=== PATIENT | female | born 1940 | race Caucasian/White ===

== ENCOUNTER 2017-05-10 17:04 | Inpatient (IN) | payer MEDICARE, OTHER ==
[~2017-05-10] VITALS: Ht 157.5 cm; Wt 60.0 kg
[~2017-05-10 17:04] MED LIST: ALBU18HF2 INH; BUDE10.2 INH; CLON0.5T23 PO; DOCU-28 PO; DOXY-200 PO; FLUT16SP26 BOTHNARES; GUAI600T45 PO; HYDR-565 PO; IPRA3AMP9 IH; KETO10DR13 OP; MAGN800O PO; MORP10SO22 PO; ONDA8TAB6 PO; SIME125C43 PO; TRAZ-143 PO
[2017-05-10] MEDS ORDERED: magnesium 2GM in 50ml NS 50 ML IV ONE (17:20)
[2017-05-10] MEDS ORDERED: normal saline 1000ML IV soln IV ONE (17:20)
[2017-05-10] MEDS ORDERED: methylPREDNISolone sod succ 125mg/2ml vial IV ONE (17:20)
[2017-05-10] MEDS ORDERED: ipratropium/albuterol 3ml nebule NEB ONE (17:20)
[2017-05-10] MEDS ORDERED: levoFLOXACIN-Levaquin 750MG/D5 150 ML IV ONE (17:20)
[2017-05-10] MEDS ORDERED: levoFLOXACIN 250mg tablet PO ONE (17:40)
[2017-05-10 17:50] LABS: BASOPHILS % (AUTO) 0.2 % (0-1); EOSINOPHILS # (AUTO) 0.3 X10'3 (0-0.9); EOSINOPHILS % (AUTO) 2.7 % (0-6); HEMATOCRIT 40.2 % (35.0-45.0); HEMOGLOBIN 13.3 g/dl (12.0-16.0); LYMPHOCYTES # (AUTO) 1.2 X10'3 (1.1-4.8); LYMPHOCYTES % (AUTO) 10.8 % (21-51); MEAN CORPUSCULAR HEMOGLOBIN 28.6 PG (27.0-31.0); MEAN CORPUSCULAR HGB CONC 33.1 % (33.0-36.5); MEAN CORPUSCULAR VOLUME 86.5 FL (78-98); MEAN PLATELET VOLUME 6.5 FL (7.4-10.4); MONOCYTES # (AUTO) 0.8 X10'3 (0-0.9); MONOCYTES % (AUTO) 6.8 % (2-12); NEUTROPHILS # (AUTO) 8.9 X10'3 (1.8-7.7); NEUTROPHILS % (AUTO) 79.5 % (42-75); PLATELET COUNT 247 X10'3 (140-440); RED BLOOD COUNT 4.65 X10'6 (4.20-5.60); RED CELL DISTRIBUTION WIDTH 14.1 % (11.5-14.5); WHITE BLOOD COUNT 11.1 X10'3 (4.5-11.0)
[2017-05-10 18:04] LABS: PARTIAL THROMBOPLASTIN TIME 24 SECONDS (22-32); PROTHROMBIN TIME 10.2 SECONDS (9.0-12.0)
[2017-05-10 18:06] LABS: ABG OXYGEN SATURATION 94.6 % (95-98); ABG PH (T) 7.337 (7.350-7.450); ABG PO2 (T) 73.8 mmHg (83-108); ALLEN'S TEST Negative; FCOHb 3.8 % (0.5-1.5); FLOW 2 L/min; FMetHb 0.1 % (0.3-1.12); FO2Hb 90.9 % (94-100); RESPIRATORY RATE (OBSERVED) 16 b/min; TOTAL HEMOGLOBIN 13.9 G/dl (12.0-16.0)
[2017-05-10 18:13] LABS: ALANINE AMINOTRANSFERASE 29 U/L (12-78); ALBUMIN 3.3 G/DL (3.4-5.0); ALBUMIN/GLOBULIN RATIO 1.2 (1.1-1.5); ALKALINE PHOSPHATASE 65 IU/L (46-116); ANION GAP 1 (8-16); ASPARTATE AMINO TRANSFERASE 16 U/L (10-37); BILIRUBIN,TOTAL 0.7 MG/DL (0.1-1.0); BLOOD UREA NITROGEN 28 MG/DL (7-18); BUN/CREATININE RATIO 46.7 (6.6-38.0); CALCIUM 8.8 MG/DL (8.5-10.1); CHLORIDE 104 MMOL/L (99-107); GLUCOSE 175 MG/DL (70-104); MAGNESIUM 2.1 MG/DL (1.5-2.4); POTASSIUM 3.5 MMOL/L (3.5-5.1); SODIUM 146 MMOL/L (135-145); eGFR > 90 ML/MIN
[2017-05-10 18:15] LABS: TOTAL CARBON DIOXIDE 41.3 MMOL/L (24-32)
[2017-05-10] MEDS ORDERED: PRED5TAB PO (19:21)
[2017-05-10] MEDS ORDERED: MORP-64 PO (19:21)
[2017-05-10] MEDS ORDERED: LORA0.5T PO (19:21)
[2017-05-10] MEDS ORDERED: MORPHINE PO PRN (19:40)
[2017-05-10] MEDS ORDERED: acetaminophen 325mg tablet PO PRN ×2 (19:40)
[2017-05-10] MEDS ORDERED: HYDROcodone/acetaminophen 10/325mg tab PO PRN ×2 (19:40)
[2017-05-10] MEDS ORDERED: ondansetron/PF 4mg/2ml inj IV PRN (19:40)
[2017-05-10] MEDS ORDERED: mag hydrox/Alum hydrox/simeth 30ml oral suspension PO PRN (19:40)
[2017-05-10] MEDS ORDERED: metoclopramide 5 mg/ml inj IV PRN (19:40)
[2017-05-10] MEDS ORDERED: diphenhydrAMINE 25mg capsule PO PRN (19:40)
[2017-05-10] MEDS ORDERED: HYDROmorphone 2mg/ml vial IV PRN ×2 (19:40)
[2017-05-10] MEDS ORDERED: non-formulary drug (Albuterol Sulfate (Ventolin Hfa) 2 PUFFS) INH SCH (19:40)
[2017-05-10] MEDS ORDERED: HYDROcodone/acetaminophen 5mg/325mg tablet PO PRN (19:40)
[2017-05-10] MEDS ORDERED: magnesium hydroxide 30ml (MOM) UD suspension PO PRN (19:40)
[2017-05-10] MEDS ORDERED: morphine 2 MG/ML inj. syringe IV PRN ×2 (19:40)
[2017-05-10] MEDS ORDERED: bisacodyl 10mg suppository rectal RC PRN (19:40)
[2017-05-10] MEDS ORDERED: acetaminophen 650mg rectal suppository RC PRN (19:40)
[2017-05-10] MEDS ORDERED: diphenhydrAMINE 50 mg/ml inj IV PRN (19:40)
[2017-05-10 20:06] LABS: CLARITY,URINE CLEAR (Clear); COLOR,URINE YELLOW (Yellow); GLUCOSE, URINE NEGATIVE (Neg); KETONES,URINE 15 mg/dl (Neg); LEUKOCYTE ESTERASE ,URINE NEGATIVE (Neg); NITRITES, URINE NEGATIVE (Neg); OCCULT BLOOD,URINE NEGATIVE (Neg); PH,URINE 5.5 (4.8-8.0); PROTEIN,URINE NEGATIVE (Neg); UROBILINOGEN,URINE 0.2 E.U/dL (0.2-1.0)
[2017-05-10 20:09] LABS: UA COLLECTION TYPE FOLEY CATH
[2017-05-10 20:30] VITALS: BP 111/50
[2017-05-10] MEDS ORDERED: temazepam 15mg capsule PO PRN (21:00)
[2017-05-10 21:12] LABS: LIPASE 62 U/L (73-393); PHOSPHORUS 3.3 MG/DL (2.3-4.5)
[2017-05-10] MEDS: normal saline 1000ml 1,000 ML IV SCH (21:15)
[2017-05-10] MEDS: guaiFENesin ER 600mg tablet PO SCH (21:15)
[2017-05-10] MEDS: morphine ER 15mg tablet PO SCH (21:15)
[2017-05-10] MEDS: heparin, porcine 5000 units/ml vial SQ SCH (21:17)
[2017-05-10] MEDS: docusate sod 100mg capsule PO SCH (21:18)
[2017-05-10 22:00] VITALS: BP 116/59
[2017-05-11] MEDS: albuterol 2.5 MG/3 ML nebule NEB PRN ×2 (00:20→11:12)
[2017-05-11 05:00] VITALS: BP 104/55
[2017-05-11 06:40] LABS: BASOPHILS % (AUTO) 0 % (0-1); EOSINOPHILS # (AUTO) 0.1 X10'3 (0-0.9); EOSINOPHILS % (AUTO) 1.2 % (0-6); HEMATOCRIT 32.8 % (35.0-45.0); LYMPHOCYTES # (AUTO) 0.3 X10'3 (1.1-4.8); MEAN CORPUSCULAR HEMOGLOBIN 28.4 PG (27.0-31.0); MEAN CORPUSCULAR HGB CONC 33.6 % (33.0-36.5); MEAN CORPUSCULAR VOLUME 84.6 FL (78-98); MONOCYTES # (AUTO) 0.4 X10'3 (0-0.9); MONOCYTES % (AUTO) 5.2 % (2-12); NEUTROPHILS # (AUTO) 6.1 X10'3 (1.8-7.7); NEUTROPHILS % (AUTO) 88.6 % (42-75); PLATELET COUNT 199 X10'3 (140-440); RED BLOOD COUNT 3.87 X10'6 (4.20-5.60); WHITE BLOOD COUNT 6.9 X10'3 (4.5-11.0)
[2017-05-11 07:01] LABS: ALANINE AMINOTRANSFERASE 24 U/L (12-78); ALBUMIN 2.6 G/DL (3.4-5.0); ALBUMIN/GLOBULIN RATIO 1.1 (1.1-1.5); ALKALINE PHOSPHATASE 54 IU/L (46-116); ANION GAP 1 (8-16); ASPARTATE AMINO TRANSFERASE 15 U/L (10-37); BILIRUBIN,TOTAL 0.6 MG/DL (0.1-1.0); BLOOD UREA NITROGEN 24 MG/DL (7-18); CALCIUM 8.2 MG/DL (8.5-10.1); CHLORIDE 106 MMOL/L (99-107); GLUCOSE 156 MG/DL (70-104); POTASSIUM 4.4 MMOL/L (3.5-5.1); SODIUM 145 MMOL/L (135-145); TOTAL CARBON DIOXIDE 37.7 MMOL/L (24-32); eGFR > 90 ML/MIN
[2017-05-11] MEDS ORDERED: docusate sod 100mg capsule PO SCH (08:00)
[2017-05-11] MEDS ORDERED: CefTRIAXone/D5W-Rocephin 1gm 50 ML IV SCH (08:00)
[2017-05-11] MEDS ORDERED: azithromycin 250mg tablet PO SCH (08:00)
[2017-05-11] MEDS: docusate sod 100mg capsule PO SCH ×2 (09:05→19:38)
[2017-05-11] MEDS: morphine ER 15mg tablet PO SCH ×2 (09:05→19:38)
[2017-05-11] MEDS: pantoprazole 40mg Tablet.DR PO SCH (09:05)
[2017-05-11] MEDS: furosemide 20 MG/2 ML vial IV SCH (09:05)
[2017-05-11] MEDS: guaiFENesin ER 600mg tablet PO SCH ×2 (09:05→19:38)
[2017-05-11] MEDS: heparin, porcine 5000 units/ml vial SQ SCH ×2 (09:06→19:38)
[2017-05-11 10:30] VITALS: BP 107/60
[2017-05-11 11:26] LABS: ABG BASE EXCESS 10.3 mmol/L (-2.0-3.0); ABG HCO3 37.7 mmol/L (22.0-26.0); ABG OXYGEN SATURATION 95.5 % (95-98); ABG PCO2 (T) 65.4 mmHg (32.0-45.0); ABG PH (T) 7.379 (7.350-7.450); ABG PO2 (T) 75.9 mmHg (83-108); FCOHb 1.7 % (0.5-1.5); FLOW 3 L/min; FMetHb 0.1 % (0.3-1.12); FO2Hb 93.8 % (94-100); TOTAL HEMOGLOBIN 12.3 G/dl (12.0-16.0)
[2017-05-11] MEDS: methylPREDNISolone sod succ 125mg/2ml vial IV SCH ×3 (11:41→23:53)
[2017-05-11] MEDS: nicotine 14mg patch - 24hr TD SCH (11:45)
[2017-05-11] MEDS: morphine 10 MG/5 ML UD oral solution PO PRN ×3 (11:51→21:46)
[2017-05-11] MEDS: LORazepam 0.5 MG tablet PO PRN (14:40)
[2017-05-11] MEDS: ipratropium/albuterol 3ml nebule NEB SCH ×3 (14:43→23:34)
[2017-05-11] MEDS: lactobacillus rhamnosus 10,000 MMU CELLS/CAPSULE PO SCH (16:55)
[2017-05-11 18:00] VITALS: BP 117/65
[2017-05-11 22:00] VITALS: BP 115/53
[2017-05-12] MEDS: ipratropium/albuterol 3ml nebule NEB SCH ×6 (02:49→23:02)
[2017-05-12] MEDS: morphine 10 MG/5 ML UD oral solution PO PRN ×4 (03:17→22:58)
[2017-05-12 06:00] VITALS: BP 115/58
[2017-05-12 06:38] LABS: ALANINE AMINOTRANSFERASE 24 U/L (12-78); ALBUMIN 2.7 G/DL (3.4-5.0); ALBUMIN/GLOBULIN RATIO 1.1 (1.1-1.5); ALKALINE PHOSPHATASE 55 IU/L (46-116); ANION GAP 3 (8-16); ASPARTATE AMINO TRANSFERASE 12 U/L (10-37); BILIRUBIN,TOTAL 0.4 MG/DL (0.1-1.0); BLOOD UREA NITROGEN 23 MG/DL (7-18); BUN/CREATININE RATIO 38.3 (6.6-38.0); CALCIUM 8.3 MG/DL (8.5-10.1); CHLORIDE 106 MMOL/L (99-107); GLUCOSE 199 MG/DL (70-104); SODIUM 145 MMOL/L (135-145); TOTAL PROTEIN 5.2 G/DL (6.4-8.2); eGFR > 90 ML/MIN
[2017-05-12] MEDS: methylPREDNISolone sod succ 125mg/2ml vial IV SCH ×3 (08:16→20:58)
[2017-05-12] MEDS: pantoprazole 40mg Tablet.DR PO SCH (08:16)
[2017-05-12] MEDS: guaiFENesin ER 600mg tablet PO SCH ×2 (08:16→20:54)
[2017-05-12] MEDS: lactobacillus rhamnosus 10,000 MMU CELLS/CAPSULE PO SCH ×2 (08:16→16:35)
[2017-05-12] MEDS: morphine ER 15mg tablet PO SCH ×2 (08:16→20:54)
[2017-05-12] MEDS: docusate sod 100mg capsule PO SCH ×2 (08:16→20:54)
[2017-05-12] MEDS: furosemide 20 MG/2 ML vial IV SCH (08:16)
[2017-05-12] MEDS: heparin, porcine 5000 units/ml vial SQ SCH ×2 (08:17→20:57)
[2017-05-12] MEDS: nicotine 14mg patch - 24hr TD SCH (08:20)
[2017-05-12] MEDS: levoFLOXACIN-Levaquin 500mg/D5 100 ML IV SCH (08:22)
[2017-05-12] MEDS: LORazepam 0.5 MG tablet PO PRN (10:11)
[2017-05-12 10:30] VITALS: BP 115/62
[2017-05-12 19:00] VITALS: BP 118/66
[2017-05-12] MEDS: normal saline 1000ml 1,000 ML IV SCH (20:59)
[2017-05-12 22:00] VITALS: BP 127/67
[2017-05-13] MEDS: ipratropium/albuterol 3ml nebule NEB SCH ×5 (03:28→23:12)
[2017-05-13 05:00] VITALS: BP 108/62
[2017-05-13] MEDS: morphine 10 MG/5 ML UD oral solution PO PRN (06:09)
[2017-05-13 07:42] LABS: ALANINE AMINOTRANSFERASE 25 U/L (12-78); ALBUMIN/GLOBULIN RATIO 1.2 (1.1-1.5); ALKALINE PHOSPHATASE 56 IU/L (46-116); ANION GAP 5 (8-16); ASPARTATE AMINO TRANSFERASE 13 U/L (10-37); BILIRUBIN,TOTAL 0.5 MG/DL (0.1-1.0); BLOOD UREA NITROGEN 23 MG/DL (7-18); BUN/CREATININE RATIO 38.3 (6.6-38.0); CALCIUM 8.6 MG/DL (8.5-10.1); CHLORIDE 105 MMOL/L (99-107); GLUCOSE 149 MG/DL (70-104); POTASSIUM 3.8 MMOL/L (3.5-5.1); SODIUM 148 MMOL/L (135-145); TOTAL PROTEIN 5.6 G/DL (6.4-8.2); eGFR > 90 ML/MIN
[2017-05-13] MEDS: guaiFENesin ER 600mg tablet PO SCH ×2 (08:40→20:01)
[2017-05-13] MEDS: pantoprazole 40mg Tablet.DR PO SCH (08:40)
[2017-05-13] MEDS: lactobacillus rhamnosus 10,000 MMU CELLS/CAPSULE PO SCH ×2 (08:41→17:21)
[2017-05-13] MEDS: docusate sod 100mg capsule PO SCH ×2 (08:41→20:00)
[2017-05-13] MEDS: morphine ER 15mg tablet PO SCH ×2 (08:41→20:01)
[2017-05-13] MEDS: heparin, porcine 5000 units/ml vial SQ SCH ×2 (08:44→20:01)
[2017-05-13] MEDS: methylPREDNISolone sod succ 125mg/2ml vial IV SCH (08:45)
[2017-05-13] MEDS: furosemide 20 MG/2 ML vial IV SCH (08:45)
[2017-05-13] MEDS: levoFLOXACIN-Levaquin 500mg/D5 100 ML IV SCH (08:46)
[2017-05-13] MEDS: nicotine 14mg patch - 24hr TD SCH (08:47)
[2017-05-13 10:00] VITALS: BP 118/72
[2017-05-13 12:27] LABS: ANION GAP 5 (8-16); BLOOD UREA NITROGEN 24 MG/DL (7-18); BUN/CREATININE RATIO 34.3 (6.6-38.0); CALCIUM 8.7 MG/DL (8.5-10.1); CHLORIDE 104 MMOL/L (99-107); GLUCOSE 116 MG/DL (70-104); POTASSIUM 3.5 MMOL/L (3.5-5.1); SODIUM 147 MMOL/L (135-145); TOTAL CARBON DIOXIDE 38.5 MMOL/L (24-32); eGFR 82 ML/MIN
[2017-05-13] MEDS: LORazepam 0.5 MG tablet PO PRN (13:20)
[2017-05-13] MEDS: potassium cl 20mEq in 1/2 NS 1,000 ML IV SCH (17:21)
[2017-05-13 19:00] VITALS: BP 128/79
[2017-05-13] MEDS: methylPREDNISolone sod succ/PF 40mg inj. IV SCH (20:02)
[2017-05-13 22:30] VITALS: BP 119/70
[2017-05-14] MEDS: ipratropium/albuterol 3ml nebule NEB SCH ×4 (03:05→14:28)
[2017-05-14] MEDS: morphine 10 MG/5 ML UD oral solution PO PRN (05:13)
[2017-05-14] MEDS: potassium cl 20mEq in 1/2 NS 1,000 ML IV SCH (05:14)
[2017-05-14 06:00] VITALS: BP_SYST 111; BP_SYST 130; BP_DIAS 61; BP_DIAS 74
[2017-05-14] MEDS: pantoprazole 40mg Tablet.DR PO SCH (07:11)
[2017-05-14] MEDS: nicotine 14mg patch - 24hr TD SCH (07:11)
[2017-05-14] MEDS: lactobacillus rhamnosus 10,000 MMU CELLS/CAPSULE PO SCH (07:11)
[2017-05-14] MEDS: methylPREDNISolone sod succ/PF 40mg inj. IV SCH (07:11)
[2017-05-14] MEDS: docusate sod 100mg capsule PO SCH (07:11)
[2017-05-14] MEDS: heparin, porcine 5000 units/ml vial SQ SCH (07:12)
[2017-05-14] MEDS: morphine ER 15mg tablet PO SCH (07:12)
[2017-05-14] MEDS: guaiFENesin ER 600mg tablet PO SCH (07:12)
[2017-05-14 07:37] LABS: ALANINE AMINOTRANSFERASE 32 U/L (12-78); ALBUMIN 2.7 G/DL (3.4-5.0); ALBUMIN/GLOBULIN RATIO 1.1 (1.1-1.5); ALKALINE PHOSPHATASE 52 IU/L (46-116); ANION GAP 2 (8-16); ASPARTATE AMINO TRANSFERASE 17 U/L (10-37); BILIRUBIN,TOTAL 0.6 MG/DL (0.1-1.0); BLOOD UREA NITROGEN 19 MG/DL (7-18); BUN/CREATININE RATIO 31.7 (6.6-38.0); CALCIUM 8.4 MG/DL (8.5-10.1); CHLORIDE 106 MMOL/L (99-107); GLUCOSE 143 MG/DL (70-104); POTASSIUM 4.2 MMOL/L (3.5-5.1); SODIUM 145 MMOL/L (135-145); TOTAL CARBON DIOXIDE 37.5 MMOL/L (24-32); TOTAL PROTEIN 5.1 G/DL (6.4-8.2); eGFR > 90 ML/MIN
[2017-05-14] MEDS ORDERED: levoFLOXACIN 500mg tablet PO SCH (11:00)
[2017-05-14] MEDS: LORazepam 0.5 MG tablet PO PRN (12:39)
== END 2017-05-14 15:54 | DRG 291 ==
LOC: ER 17:05 → ORTHO 4S 19:44
PROVIDERS: ADMIT Family Medicine; ATTEND Internal Medicine
DX: I50.23 Acute on chronic systolic (congestive) heart failure (principal); J96.21 Acute and chronic respiratory failure with hypoxia; E87.0 Hyperosmolality and hypernatremia; J44.1 Chronic obstructive pulmonary disease with (acute) exacerbation; J44.0 Chronic obstructive pulmonary disease with (acute) lower respiratory infection; Z99.81 Dependence on supplemental oxygen; R91.1 Solitary pulmonary nodule; J20.9 Acute bronchitis, unspecified; E04.2 Nontoxic multinodular goiter; F17.200 Nicotine dependence, unspecified, uncomplicated; Z79.899 Other long term (current) drug therapy; Z85.118 Personal history of other malignant neoplasm of bronchus and lung; Z80.9 Family history of malignant neoplasm, unspecified; Z71.6 Tobacco abuse counseling
CPT/HCPCS: 36415; 36600; 71045; 71250; 76536; 80048; 80053; 81003; 82803; 83605; 83690; 83735; 83880; 84100; 84145; 84443; 84484; 85018; 85025; 85610; 85730; 87040; 87070; 93005; 93306; 94640; 94760; 96365; 96375; 97116; 97162; 97530; 99285; A6209; A6212; A6213; A6222; A6402; A6449; J0696; J1644; J1940; J1956; J2270; J2405; J2920; J2930; J3475; J7030

== ENCOUNTER 2017-07-08 17:15 | Inpatient (IN) | payer MEDICARE, OTHER ==
[~2017-07-08] VITALS: Ht 157.5 cm; Wt 47.7 kg
[~2017-07-08 17:15] MED LIST changes: -BUDE10.2 INH; -CLON0.5T23 PO; -DOXY-200 PO; -KETO10DR13 OP; +LORA0.5T PO; +MORP-64 PO; -ONDA8TAB6 PO; +PRED5TAB PO; -TRAZ-143 PO
[2017-07-08 17:57] LABS: BASOPHILS % (AUTO) 0 % (0-1); EOSINOPHILS % (AUTO) 0.7 % (0-6); HEMATOCRIT 41.2 % (35.0-45.0); HEMOGLOBIN 13.6 g/dl (12.0-16.0); LYMPHOCYTES # (AUTO) 0.3 X10'3 (1.1-4.8); LYMPHOCYTES % (AUTO) 3.6 % (21-51); MEAN CORPUSCULAR HEMOGLOBIN 28.4 PG (27.0-31.0); MEAN CORPUSCULAR HGB CONC 32.9 % (33.0-36.5); MEAN CORPUSCULAR VOLUME 86.4 FL (78-98); MEAN PLATELET VOLUME 6.7 FL (7.4-10.4); MONOCYTES # (AUTO) 0.1 X10'3 (0-0.9); MONOCYTES % (AUTO) 1.3 % (2-12); NEUTROPHILS # (AUTO) 6.8 X10'3 (1.8-7.7); NEUTROPHILS % (AUTO) 94.4 % (42-75); PLATELET COUNT 237 X10'3 (140-440); RED BLOOD COUNT 4.77 X10'6 (4.20-5.60); RED CELL DISTRIBUTION WIDTH 13.6 % (11.5-14.5); WHITE BLOOD COUNT 7.2 X10'3 (4.5-11.0)
[2017-07-08 18:12] LABS: ALANINE AMINOTRANSFERASE 32 U/L (12-78); ALBUMIN 3.4 G/DL (3.4-5.0); ALBUMIN/GLOBULIN RATIO 1.1 (1.1-1.5); ALKALINE PHOSPHATASE 68 IU/L (46-116); ANION GAP 6 (8-16); ASPARTATE AMINO TRANSFERASE 23 U/L (10-37); BILIRUBIN,TOTAL 0.5 MG/DL (0.1-1.0); BLOOD UREA NITROGEN 26 MG/DL (7-18); CALCIUM 8.8 MG/DL (8.5-10.1); CHLORIDE 100 MMOL/L (99-107); CREATININE 0.52 MG/DL (0.40-0.90); GLUCOSE 163 MG/DL (70-104); SODIUM 142 MMOL/L (135-145); TOTAL CARBON DIOXIDE 36.2 MMOL/L (24-32); TOTAL PROTEIN 6.5 G/DL (6.4-8.2); eGFR > 90 ML/MIN
[2017-07-08] MEDS ORDERED: ipratropium/albuterol 3ml nebule NEB ONE ×2 (20:00→21:15)
[2017-07-08] MEDS ORDERED: methylPREDNISolone sod succ 125mg/2ml vial IV ONE (20:00)
[2017-07-08 20:25] LABS: ABG BASE EXCESS 9.2 mmol/L (-2.0-3.0); ABG HCO3 36.9 mmol/L (22.0-26.0); ABG OXYGEN SATURATION 95.7 % (95-98); ABG PCO2 (T) 64.1 mmHg (32.0-45.0); ABG PH (T) 7.377 (7.350-7.450); ABG PO2 (T) 75.8 mmHg (83-108); FCOHb 2.6 % (0.5-1.5); FLOW 3 L/min; FMetHb 0.2 % (0.3-1.12); PATIENT TEMPERATURE 36.7; TOTAL HEMOGLOBIN 13.7 G/dl (12.0-16.0)
[2017-07-08] MEDS ORDERED: CefTRIAXone/D5W-Rocephin 1gm 50 ML IV ONE (20:25)
[2017-07-08] MEDS ORDERED: normal saline 1000ML IV soln IVB ONE (20:25)
[2017-07-08] MEDS ORDERED: mag hydrox/Alum hydrox/simeth 30ml oral suspension PO PRN (23:30)
[2017-07-08] MEDS ORDERED: acetaminophen 325mg tablet PO PRN (23:30)
[2017-07-08] MEDS ORDERED: potassium Cl 40MEQ/NS 500ml 500 ML IV PRN ×2 (23:30)
[2017-07-08] MEDS ORDERED: ondansetron/PF 4mg/2ml inj IV PRN (23:30)
[2017-07-08] MEDS ORDERED: potassium Cl 20 mEq SR tablet PO PRN ×2 (23:30)
[2017-07-08] MEDS ORDERED: magnesium hydroxide 30ml (MOM) UD suspension PO PRN (23:30)
[2017-07-09] MEDS: methylPREDNISolone sod succ 125mg/2ml vial IV SCH ×4 (00:04→23:56)
[2017-07-09] MEDS: ipratropium/albuterol 3ml nebule NEB SCH ×4 (02:45→21:08)
[2017-07-09 02:50] LABS: BASOPHILS % (AUTO) 0 % (0-1); EOSINOPHILS # (AUTO) 0.1 X10'3 (0-0.9); HEMATOCRIT 36.7 % (35.0-45.0); HEMOGLOBIN 12.1 g/dl (12.0-16.0); LYMPHOCYTES # (AUTO) 0.2 X10'3 (1.1-4.8); LYMPHOCYTES % (AUTO) 3.1 % (21-51); MEAN CORPUSCULAR HEMOGLOBIN 28.5 PG (27.0-31.0); MEAN CORPUSCULAR HGB CONC 33.2 % (33.0-36.5); MEAN PLATELET VOLUME 6.6 FL (7.4-10.4); MONOCYTES % (AUTO) 0.5 % (2-12); NEUTROPHILS % (AUTO) 95.4 % (42-75); PLATELET COUNT 222 X10'3 (140-440); RED BLOOD COUNT 4.26 X10'6 (4.20-5.60); RED CELL DISTRIBUTION WIDTH 13.5 % (11.5-14.5); WHITE BLOOD COUNT 5.2 X10'3 (4.5-11.0)
[2017-07-09 03:07] LABS: ALBUMIN 2.8 G/DL (3.4-5.0); ANION GAP 5 (8-16); BLOOD UREA NITROGEN 23 MG/DL (7-18); CALCIUM 8.6 MG/DL (8.5-10.1); CHLORIDE 107 MMOL/L (99-107); GLUCOSE 219 MG/DL (70-104); SODIUM 147 MMOL/L (135-145); TOTAL CARBON DIOXIDE 35.5 MMOL/L (24-32); eGFR > 90 ML/MIN
[2017-07-09] MEDS: budesonide 0.5mg/2ml UD nebule IH SCH ×2 (08:00→21:08)
[2017-07-09] MEDS: docusate sod 100mg capsule PO SCH (09:33)
[2017-07-09] MEDS: guaiFENesin ER 600mg tablet PO SCH ×2 (09:33→20:30)
[2017-07-09 10:50] VITALS: BP 100/50
[2017-07-09 11:30] VITALS: BP 116/57
[2017-07-09] MEDS: fluticasone nasal spray 16GM bottle NS SCH (12:06)
[2017-07-09] MEDS: K and/or MAG REPLACEMENT MC SCH (12:06)
[2017-07-09] MEDS: HYDROcodone/acetaminophen 5mg/325mg tablet PO PRN ×2 (16:32→20:30)
[2017-07-09 20:00] VITALS: BP 159/69
[2017-07-09] MEDS: LORazepam 0.5 MG tablet PO PRN (20:30)
[2017-07-09] MEDS: CefTRIAXone/D5W-Rocephin 1gm 50 ML IV SCH (23:55)
[2017-07-09] MEDS: sodium chloride 0.45% 1,000 ML IV SCH (23:55)
[2017-07-10] VITALS: BP 125/65
[2017-07-10] MEDS: ipratropium/albuterol 3ml nebule NEB SCH ×7 (00:11→23:32)
[2017-07-10] MEDS: azithromycin/NS 500mg/250ml 250 ML IV SCH ×2 (01:13→20:28)
[2017-07-10 04:30] VITALS: BP 112/56
[2017-07-10 05:39] LABS: BASOPHILS % (AUTO) 0 % (0-1); EOSINOPHILS # (AUTO) 0.1 X10'3 (0-0.9); EOSINOPHILS % (AUTO) 1.3 % (0-6); HEMATOCRIT 34.5 % (35.0-45.0); HEMOGLOBIN 11.5 g/dl (12.0-16.0); LYMPHOCYTES # (AUTO) 0.2 X10'3 (1.1-4.8); LYMPHOCYTES % (AUTO) 2.6 % (21-51); MEAN CORPUSCULAR HEMOGLOBIN 28.7 PG (27.0-31.0); MEAN CORPUSCULAR HGB CONC 33.3 % (33.0-36.5); MEAN CORPUSCULAR VOLUME 86.1 FL (78-98); MONOCYTES # (AUTO) 0.3 X10'3 (0-0.9); MONOCYTES % (AUTO) 3.5 % (2-12); NEUTROPHILS # (AUTO) 7.1 X10'3 (1.8-7.7); NEUTROPHILS % (AUTO) 92.6 % (42-75); PLATELET COUNT 204 X10'3 (140-440); RED BLOOD COUNT 4.01 X10'6 (4.20-5.60); RED CELL DISTRIBUTION WIDTH 13.7 % (11.5-14.5); WHITE BLOOD COUNT 7.7 X10'3 (4.5-11.0)
[2017-07-10 05:44] LABS: ALBUMIN 2.9 G/DL (3.4-5.0); ANION GAP 4 (8-16); BLOOD UREA NITROGEN 24 MG/DL (7-18); BUN/CREATININE RATIO 53.3 (6.6-38.0); CALCIUM 8.5 MG/DL (8.5-10.1); CHLORIDE 107 MMOL/L (99-107); CREATININE 0.45 MG/DL (0.40-0.90); GLUCOSE 158 MG/DL (70-104); POTASSIUM 3.9 MMOL/L (3.5-5.1); SODIUM 146 MMOL/L (135-145); TOTAL CARBON DIOXIDE 35.2 MMOL/L (24-32); eGFR > 90 ML/MIN
[2017-07-10 07:00] VITALS: BP 103/42
[2017-07-10] MEDS: budesonide 0.5mg/2ml UD nebule IH SCH ×2 (07:16→19:26)
[2017-07-10] MEDS: pantoprazole 40 MG vial IV SCH (07:37)
[2017-07-10] MEDS: methylPREDNISolone sod succ 125mg/2ml vial IV SCH ×2 (07:38→16:19)
[2017-07-10] MEDS: docusate sod 100mg capsule PO SCH (07:38)
[2017-07-10] MEDS: lactobacillus rhamnosus 10,000 MMU CELLS/CAPSULE PO SCH ×2 (07:38→20:31)
[2017-07-10] MEDS: guaiFENesin ER 600mg tablet PO SCH ×2 (07:38→20:32)
[2017-07-10] MEDS: CefTRIAXone/D5W-Rocephin 1gm 50 ML IV SCH (07:38)
[2017-07-10] MEDS: LORazepam 0.5 MG tablet PO PRN (07:59)
[2017-07-10] MEDS: fluticasone nasal spray 16GM bottle NS SCH (08:00)
[2017-07-10] MEDS: K and/or MAG REPLACEMENT MC SCH (08:00)
[2017-07-10] MEDS: heparin, porcine 5000 units/ml vial SQ SCH ×2 (08:00→20:33)
[2017-07-10] MEDS ORDERED: heparin, porcine 5000 units/ml vial SQ SCH (08:00)
[2017-07-10 11:00] VITALS: BP 128/60
[2017-07-10 15:00] VITALS: BP 138/69
[2017-07-10 20:00] VITALS: BP 131/60
[2017-07-10] MEDS: sodium chloride 0.45% 1,000 ML IV SCH (20:28)
[2017-07-11] VITALS (7 sets, daily range): BP systolic 117–146; BP diastolic 57–80
[2017-07-11] MEDS: methylPREDNISolone sod succ 125mg/2ml vial IV SCH ×3 (00:23→17:48)
[2017-07-11] MEDS: LORazepam 0.5 MG tablet PO PRN ×3 (01:43→21:12)
[2017-07-11] MEDS: HYDROcodone/acetaminophen 5mg/325mg tablet PO PRN ×3 (02:50→22:16)
[2017-07-11] MEDS: ipratropium/albuterol 3ml nebule NEB SCH ×5 (03:55→19:51)
[2017-07-11 05:40] LABS: BASOPHILS % (AUTO) 0 % (0-1); EOSINOPHILS % (AUTO) 0 % (0-6); HEMATOCRIT 32.9 % (35.0-45.0); HEMOGLOBIN 10.9 g/dl (12.0-16.0); LYMPHOCYTES # (AUTO) 0.2 X10'3 (1.1-4.8); LYMPHOCYTES % (AUTO) 3.4 % (21-51); MEAN CORPUSCULAR HEMOGLOBIN 28.2 PG (27.0-31.0); MEAN CORPUSCULAR HGB CONC 33.2 % (33.0-36.5); MEAN CORPUSCULAR VOLUME 85.2 FL (78-98); MEAN PLATELET VOLUME 6.9 FL (7.4-10.4); MONOCYTES # (AUTO) 0.2 X10'3 (0-0.9); MONOCYTES % (AUTO) 3.1 % (2-12); NEUTROPHILS # (AUTO) 6.1 X10'3 (1.8-7.7); NEUTROPHILS % (AUTO) 93.5 % (42-75); PLATELET COUNT 188 X10'3 (140-440); RED BLOOD COUNT 3.86 X10'6 (4.20-5.60); RED CELL DISTRIBUTION WIDTH 13.7 % (11.5-14.5); WHITE BLOOD COUNT 6.5 X10'3 (4.5-11.0)
[2017-07-11 05:48] LABS: ALBUMIN 2.8 G/DL (3.4-5.0); ANION GAP 2 (8-16); BLOOD UREA NITROGEN 24 MG/DL (7-18); CALCIUM 8.4 MG/DL (8.5-10.1); CHLORIDE 108 MMOL/L (99-107); CREATININE 0.48 MG/DL (0.40-0.90); GLUCOSE 155 MG/DL (70-104); POTASSIUM 3.9 MMOL/L (3.5-5.1); SODIUM 146 MMOL/L (135-145); TOTAL CARBON DIOXIDE 36.1 MMOL/L (24-32); eGFR > 90 ML/MIN
[2017-07-11] MEDS: pantoprazole 40 MG vial IV SCH (07:53)
[2017-07-11] MEDS: guaiFENesin ER 600mg tablet PO SCH ×2 (07:54→20:42)
[2017-07-11] MEDS: docusate sod 100mg capsule PO SCH (07:54)
[2017-07-11] MEDS: CefTRIAXone/D5W-Rocephin 1gm 50 ML IV SCH (07:54)
[2017-07-11] MEDS: heparin, porcine 5000 units/ml vial SQ SCH ×2 (08:00→20:00)
[2017-07-11] MEDS: lactobacillus rhamnosus 10,000 MMU CELLS/CAPSULE PO SCH ×2 (08:00→20:42)
[2017-07-11] MEDS: fluticasone nasal spray 16GM bottle NS SCH (08:00)
[2017-07-11] MEDS: K and/or MAG REPLACEMENT MC SCH (08:00)
[2017-07-11] MEDS: budesonide 0.5mg/2ml UD nebule IH SCH ×2 (11:12→19:51)
[2017-07-11] MEDS: sodium chloride 0.45% 1,000 ML IV SCH (14:36)
[2017-07-11] MEDS ORDERED: azithromycin 250mg tablet PO SCH (21:00)
[2017-07-12] VITALS: BP 125/68
[2017-07-12] MEDS: ipratropium/albuterol 3ml nebule NEB SCH ×7 (00:11→23:00)
[2017-07-12] MEDS: methylPREDNISolone sod succ 125mg/2ml vial IV SCH ×4 (00:55→23:26)
[2017-07-12 06:21] LABS: BASOPHILS % (AUTO) 0 % (0-1); EOSINOPHILS % (AUTO) 0.3 % (0-6); HEMATOCRIT 34.2 % (35.0-45.0); HEMOGLOBIN 11.4 g/dl (12.0-16.0); LYMPHOCYTES # (AUTO) 0.1 X10'3 (1.1-4.8); LYMPHOCYTES % (AUTO) 2.5 % (21-51); MEAN CORPUSCULAR HEMOGLOBIN 28.4 PG (27.0-31.0); MEAN CORPUSCULAR HGB CONC 33.3 % (33.0-36.5); MEAN CORPUSCULAR VOLUME 85.4 FL (78-98); MONOCYTES # (AUTO) 0.2 X10'3 (0-0.9); NEUTROPHILS # (AUTO) 5.6 X10'3 (1.8-7.7); NEUTROPHILS % (AUTO) 94.2 % (42-75); PLATELET COUNT 193 X10'3 (140-440); RED BLOOD COUNT 4.01 X10'6 (4.20-5.60); RED CELL DISTRIBUTION WIDTH 13.2 % (11.5-14.5)
[2017-07-12 06:31] LABS: ALBUMIN 2.9 G/DL (3.4-5.0); ANION GAP 3 (8-16); BLOOD UREA NITROGEN 23 MG/DL (7-18); BUN/CREATININE RATIO 46.9 (6.6-38.0); CALCIUM 8.5 MG/DL (8.5-10.1); CHLORIDE 107 MMOL/L (99-107); CREATININE 0.49 MG/DL (0.40-0.90); GLUCOSE 158 MG/DL (70-104); POTASSIUM 4.1 MMOL/L (3.5-5.1); SODIUM 146 MMOL/L (135-145); TOTAL CARBON DIOXIDE 36.2 MMOL/L (24-32); eGFR > 90 ML/MIN
[2017-07-12 07:00] VITALS: BP 112/50
[2017-07-12] MEDS: budesonide 0.5mg/2ml UD nebule IH SCH ×2 (07:46→19:55)
[2017-07-12] MEDS: heparin, porcine 5000 units/ml vial SQ SCH (08:00)
[2017-07-12] MEDS: K and/or MAG REPLACEMENT MC SCH (08:00)
[2017-07-12] MEDS: lactobacillus rhamnosus 10,000 MMU CELLS/CAPSULE PO SCH (08:06)
[2017-07-12] MEDS: pantoprazole 40mg Tablet.DR PO SCH (08:06)
[2017-07-12] MEDS: guaiFENesin ER 600mg tablet PO SCH ×2 (08:06→20:00)
[2017-07-12] MEDS: docusate sod 100mg capsule PO SCH ×2 (08:06→20:08)
[2017-07-12] MEDS: CefTRIAXone/D5W-Rocephin 1gm 50 ML IV SCH (08:08)
[2017-07-12] MEDS: LORazepam 0.5 MG tablet PO PRN (08:18)
[2017-07-12] MEDS: fluticasone nasal spray 16GM bottle NS SCH (08:26)
[2017-07-12] MEDS: sodium chloride 0.45% 1,000 ML IV SCH ×2 (10:45→16:08)
[2017-07-12 11:00] VITALS: BP 127/69
[2017-07-12] MEDS ORDERED: morphine 4 MG/ML inj SYRINge IV PRN (13:20)
[2017-07-12] MEDS ORDERED: LORazepam 0.5 MG tablet PO PRN (13:20)
[2017-07-12] MEDS ORDERED: acetaminophen 325mg tablet PO PRN (19:35)
[2017-07-12] MEDS ORDERED: morphine 10mg/ml inj. IV PRN (19:35)
[2017-07-12 20:00] VITALS: BP 129/65
[2017-07-12] MEDS: sennosides/docusate sodium tablet PO SCH (20:00)
[2017-07-12] MEDS: morphine 4 MG/ML inj SYRINge IV PRN (20:21)
[2017-07-13] MEDS: ipratropium/albuterol 3ml nebule NEB SCH ×6 (03:37→23:00)
[2017-07-13] MEDS: morphine 4 MG/ML inj SYRINge IV PRN ×2 (06:36→19:16)
[2017-07-13] MEDS: sennosides/docusate sodium tablet PO SCH ×2 (07:37→20:00)
[2017-07-13] MEDS: methylPREDNISolone sod succ 125mg/2ml vial IV SCH ×2 (07:37→16:21)
[2017-07-13] MEDS: guaiFENesin ER 600mg tablet PO SCH ×2 (07:38→20:00)
[2017-07-13] MEDS: docusate sod 100mg capsule PO SCH ×2 (07:38→20:00)
[2017-07-13] MEDS: fluticasone nasal spray 16GM bottle NS SCH (07:38)
[2017-07-13] MEDS: pantoprazole 40mg Tablet.DR PO SCH (07:38)
[2017-07-13 08:00] VITALS: BP 110/52
[2017-07-13] MEDS: budesonide 0.5mg/2ml UD nebule IH SCH ×2 (08:59→20:00)
[2017-07-13] MEDS: sodium chloride 0.45% 1,000 ML IV SCH (10:41)
[2017-07-13 11:00] VITALS: BP 147/71
[2017-07-13] MEDS: LORazepam 2 mg/ml vial IV PRN ×2 (13:32→20:54)
[2017-07-13 20:00] VITALS: BP 126/72
[2017-07-13] MEDS: nystatin 500,000 unit/5ML UD oral suspension PO SCH (20:43)
[2017-07-14] MEDS: methylPREDNISolone sod succ 125mg/2ml vial IV SCH ×4 (00:11→23:23)
[2017-07-14] MEDS: ipratropium/albuterol 3ml nebule NEB SCH ×6 (03:00→23:00)
[2017-07-14] MEDS: morphine 4 MG/ML inj SYRINge IV PRN ×2 (05:06→21:55)
[2017-07-14] MEDS: sodium chloride 0.45% 1,000 ML IV SCH ×2 (05:07→22:00)
[2017-07-14] MEDS: LORazepam 2 mg/ml vial IV PRN (05:28)
[2017-07-14 07:00] VITALS: BP 119/54
[2017-07-14] MEDS: budesonide 0.5mg/2ml UD nebule IH SCH ×2 (07:06→19:27)
[2017-07-14] MEDS: docusate sod 100mg capsule PO SCH ×2 (07:25→20:41)
[2017-07-14] MEDS: sennosides/docusate sodium tablet PO SCH ×2 (07:26→20:41)
[2017-07-14] MEDS: pantoprazole 40mg Tablet.DR PO SCH (07:26)
[2017-07-14] MEDS: guaiFENesin ER 600mg tablet PO SCH ×2 (07:28→20:40)
[2017-07-14] MEDS: nystatin 500,000 unit/5ML UD oral suspension PO SCH ×2 (08:00→13:00)
[2017-07-14] MEDS: fluticasone nasal spray 16GM bottle NS SCH (08:09)
[2017-07-14 11:00] VITALS: BP 111/58
[2017-07-14] MEDS: morphine 10mg/0.5ml (conc. morphine) oral syringe PO PRN ×2 (12:39→18:54)
[2017-07-14] MEDS: LORazepam 1 MG tablet PO PRN (19:04)
[2017-07-14 19:52] VITALS: BP 124/56
[2017-07-15] MEDS: ipratropium/albuterol 3ml nebule NEB SCH ×6 (03:00→23:08)
[2017-07-15 07:31] VITALS: BP 129/64
[2017-07-15] MEDS: budesonide 0.5mg/2ml UD nebule IH SCH ×2 (08:00→19:23)
[2017-07-15] MEDS: fluticasone nasal spray 16GM bottle NS SCH ×2 (08:00→08:16)
[2017-07-15] MEDS: pantoprazole 40mg Tablet.DR PO SCH (08:14)
[2017-07-15] MEDS: docusate sod 100mg capsule PO SCH ×2 (08:14→19:46)
[2017-07-15] MEDS: methylPREDNISolone sod succ 125mg/2ml vial IV SCH ×3 (08:15→23:47)
[2017-07-15] MEDS: guaiFENesin ER 600mg tablet PO SCH ×2 (08:15→19:45)
[2017-07-15] MEDS: sennosides/docusate sodium tablet PO SCH ×2 (08:15→19:45)
[2017-07-15] MEDS: LORazepam 1 MG tablet PO PRN (08:29)
[2017-07-15 11:00] VITALS: BP 137/70
[2017-07-15] MEDS: morphine 4 MG/ML inj SYRINge IV PRN ×4 (13:42→23:47)
[2017-07-15] MEDS: sodium chloride 0.45% 1,000 ML IV SCH (17:36)
[2017-07-15 19:42] VITALS: BP_SYST 146; BP_SYST 96; BP_DIAS 58; BP_DIAS 59
[2017-07-15] MEDS: morphine 10mg/0.5ml (conc. morphine) oral syringe PO PRN (21:56)
[2017-07-15 23:45] VITALS: BP 121/57
[2017-07-16] MEDS: LORazepam 1 MG tablet PO PRN ×3 (00:13→10:14)
[2017-07-16] MEDS: ipratropium/albuterol 3ml nebule NEB SCH ×6 (03:13→23:00)
[2017-07-16] MEDS: morphine 10mg/0.5ml (conc. morphine) oral syringe PO PRN ×4 (04:00→12:38)
[2017-07-16 07:37] VITALS: BP 119/58
[2017-07-16] MEDS: fluticasone nasal spray 16GM bottle NS SCH (08:00)
[2017-07-16] MEDS: docusate sod 100mg capsule PO SCH ×2 (08:38→20:48)
[2017-07-16] MEDS: sennosides/docusate sodium tablet PO SCH ×2 (08:39→20:48)
[2017-07-16] MEDS: pantoprazole 40mg Tablet.DR PO SCH (08:39)
[2017-07-16] MEDS: guaiFENesin ER 600mg tablet PO SCH ×2 (08:39→20:49)
[2017-07-16] MEDS: methylPREDNISolone sod succ 125mg/2ml vial IV SCH (08:39)
[2017-07-16 11:14] VITALS: BP 102/51
[2017-07-16] MEDS: budesonide 0.5mg/2ml UD nebule IH SCH ×2 (13:33→20:12)
[2017-07-16] MEDS ORDERED: HYDROcodone/acetaminophen 5mg/325mg tablet PO PRN (14:20)
[2017-07-16] MEDS: morphine 4 MG/ML inj SYRINge IV PRN ×2 (17:48→20:47)
[2017-07-16 20:00] VITALS: BP 95/47
[2017-07-17] VITALS: BP 119/62
[2017-07-17] MEDS: morphine 4 MG/ML inj SYRINge IV PRN ×8 (01:34→23:46)
[2017-07-17] MEDS: ipratropium/albuterol 3ml nebule NEB SCH ×6 (03:29→23:46)
[2017-07-17] MEDS: budesonide 0.5mg/2ml UD nebule IH SCH ×3 (07:08→23:46)
[2017-07-17 08:00] VITALS: BP 130/83
[2017-07-17] MEDS: guaiFENesin ER 600mg tablet PO SCH ×2 (09:41→21:12)
[2017-07-17] MEDS: sennosides/docusate sodium tablet PO SCH ×2 (09:42→21:11)
[2017-07-17] MEDS: pantoprazole 40mg Tablet.DR PO SCH (09:42)
[2017-07-17] MEDS: docusate sod 100mg capsule PO SCH ×2 (09:42→21:12)
[2017-07-17] MEDS: fluticasone nasal spray 16GM bottle NS SCH (09:51)
[2017-07-17] MEDS: LORazepam 1 MG tablet PO PRN (10:01)
[2017-07-17 11:00] VITALS: BP 135/65
[2017-07-17] MEDS ORDERED: morphine 4 MG/ML inj SYRINge IV PRN (12:00)
[2017-07-17 20:00] VITALS: BP 125/53
[2017-07-18] VITALS: BP 119/81
[2017-07-18] MEDS: ipratropium/albuterol 3ml nebule NEB SCH ×3 (03:00→11:00)
[2017-07-18] MEDS: morphine 4 MG/ML inj SYRINge IV PRN ×2 (04:59→08:42)
[2017-07-18 07:00] VITALS: BP 92/47
[2017-07-18] MEDS: budesonide 0.5mg/2ml UD nebule IH SCH (08:17)
[2017-07-18] MEDS: guaiFENesin ER 600mg tablet PO SCH (08:41)
[2017-07-18] MEDS: docusate sod 100mg capsule PO SCH (08:41)
[2017-07-18] MEDS: pantoprazole 40mg Tablet.DR PO SCH (08:41)
[2017-07-18] MEDS: sennosides/docusate sodium tablet PO SCH (08:41)
[2017-07-18 12:00] VITALS: BP 107/62
== END 2017-07-18 22:37 | DRG 189 ==
LOC: ER 17:15 → ED HOLD 23:28 → EDBEDREQ 07-09 05:57 → SUR 3N 07-09 10:55
PROVIDERS: ADMIT Family Medicine; ATTEND Internal Medicine
DX: J96.21 Acute and chronic respiratory failure with hypoxia (principal); L89.150 Pressure ulcer of sacral region, unstageable; I50.32 Chronic diastolic (congestive) heart failure; R64 Cachexia; J44.1 Chronic obstructive pulmonary disease with (acute) exacerbation; Z99.81 Dependence on supplemental oxygen; Z68.1 Body mass index [BMI] 19.9 or less, adult; J96.22 Acute and chronic respiratory failure with hypercapnia; Z51.5 Encounter for palliative care; Z66 Do not resuscitate; R91.1 Solitary pulmonary nodule; F17.200 Nicotine dependence, unspecified, uncomplicated; E04.2 Nontoxic multinodular goiter; Z79.899 Other long term (current) drug therapy; Z79.52 Long term (current) use of systemic steroids; Z92.3 Personal history of irradiation; Z85.118 Personal history of other malignant neoplasm of bronchus and lung; Z80.9 Family history of malignant neoplasm, unspecified; Z75.1 Person awaiting admission to adequate facility elsewhere
CPT/HCPCS: 36415; 36600; 71046; 80048; 80053; 82803; 83605; 83880; 84484; 85018; 85025; 87040; 87070; 93005; 93306; 94640; 94760; 96365; 96375; 97116; 97161; 97530; 99285; A4649; A6212; A6213; A6258; C9113; J0456; J0696; J1644; J2060; J2270; J2930; J7030; J7626